=== PATIENT | female | born 2005 | race Caucasian/White ===

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

== ENCOUNTER 2025-03-16 20:32 | Emergency (ER) | payer SELFPAY ==
--- OUTSIDE RECORDS SUMMARY | 2025-03-16 20:38 | XMS_ITS | Encounter Summary ---
Author Organization [facility] Address [address] [place] [address] Care Team Providers Care Curtains And Draperies Salesperson Name Role Phone Telly Doherty MD Primary Care Provider Unavailabl e Encounter Details Date Type Department Care Team (Latest Contact Info) Description 11/14/2006 Outpatient Historical [facility] [place] [address] [place] [address] Telly Doherty MD NO ADDRESS ON FILE Infectious Colitis, Enteritis, and Gastroenteritis (Primary Dx) Social History Tobacco Use Types Packs/Day Years Used Date Smoking Tobacco: Never Assessed Comments Unknown Sex and Gender Information Value Date Recorded Sex Assigned at Not on file 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
--- OUTSIDE RECORDS SUMMARY | 2025-03-16 20:38 | XMS_ITS | Encounter Summary ---
Author Organization [employer] [facility] Address [address] [place] [address] Care Team Providers Care Urologist Md Name Role Phone Telly Doherty MD Primary Care Provider Unavailorly e Encounter Details Date Type Department Care Team (Late st Contact Info) Description 11/07/2006 Outpatient Historical [facility] Toña Rabago MD [address] [place] [id number] Intestinal Infection due to Other Organism, NEC (Primary Dx) Social History Tobacco Use Types Packs/Day Years Used Date Smoking Tobacco: Never Assessed Comments Unknown Sex and Gender Information Value Date Recorded Sex Assigned at Not on file 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 Gender Identity Not on file Sexual Orientation Not on file documented as of this encounter Plan of Treatment Not on file documented as of this encounter Procedures Procedure Name Priority Date/Time Associated Diagnosis Comments BASIC METABOLIC PANEL Routine 11/07/2006 5:03 AM CDT DIFFERENTIAL, MANUAL Routine 11/07/2006 12:20 AM CDT BETA HYDROXYBUTYRATE Routine 11/07/2006 12:20 AM CDT CBC WITH DIFFERENTIAL Routine 11/07/2006 12:20 AM CDT BASIC METABOLIC PANEL Routine 11/07/2006 12:20 AM CDT URINALYSIS MICROSCOPY ONLY Routine 11/07/2006 12:15 AM CDT URINALYSIS W/REFLEX MICROSCOPIC Routine 11/07/2006 12:15 AM CDT documented in this encounter Results * (ABNORMAL) BASIC METABOLIC PANEL (11/07/2006 5:03 AM CDT) GLUCOSE 82 60 - 100 mg/dL INTERFACE SYSTEM BUN 10 7 - 17 mg/dL INTERFACE SYSTEM CREATININE 0.3 0.2 - 0.7 mg/dL INTERFACE SYSTEM SODIUM 137 136 - 145 mEq/L INTERFACE SYSTEM POTASSIUM 4.6 3.5 - 5.0 mEq/L INTERFACE SYSTEM CHLORIDE 111(H) 95 - 110 mEq/L INTERFACE SYSTEM CO2 19(L) 22 - 32 mmol/l INTERFACE SYSTEM CALCIUM 9.1 8.4 - 10.5 mg/dL INTERFACE SYSTEM ANION GAP 12 9 - 20 mEq/L INTERFACE SYSTEM OSMOLALITY, CALCULATED 282 275 - 295 mOsm/Kg INTERFACE SYSTEM 11/07/2006 5:03 AM CDT Toña Rabago MD CHEMISTRY ORDERABLES Edited Performing Organization Address City/[facility] Co de Phone Number INTERFACE SYSTEM Refer to clinic/hospital department * (ABNORMAL) BETA HYDROXYBUTYRATE (11/07/2006 12:20 AM CDT) BETA HYDROXYBUTYRATE 1.77(H) 0.00 - 0.25 mmol/l INTERFACE SYSTEM 11/07/2006 12:2 0 AM CDT Tricia Early DO CHEMISTRY ORDERABLES Edited Performing Organization Address [facility] Co de Phone Number INTERFACE SYSTEM Refer to clinic/hospital department * (ABNORMAL) DIFFERENTIAL, MANUAL (11/07/2006 12:20 AM CDT) NEUTROPHILS, SEG 12 10 - 35 % INT ERFACE SYSTEM LYMPHOCYTES 79(H) 44 - 74 % INTERFAC E SYSTEM MONOCYTE 6 4 - 10 % INTERFACE SYSTEM EOSINOPHILS 3 0 - 3 % INTERFAC E SYSTEM PLATELET EST. Normal Normal INTERF WAI SYSTEM RBC MORPHOLOGY Abnormal(A) Normal INT ERFACE SYSTEM ANISOCYTOSIS 1+(A) None Seen INTERFA CE SYSTEM POIKILOCYTES 2+(A) None Seen INTERFA CE SYSTEM TRIPP CELLS 1+ None Seen INTERFACE SYSTEM POLYCHROMASIA 1+(A) None Seen INTERF WAI SYSTEM SCHISTOCYTES Occasional None Seen INTERF WAI SYSTEM MICROCYTES 2+(A) None Seen INTERFACE SYSTEM 11/07/2006 12:2 0 AM CDT us Tricia Early DO HEMATOLOGY ORDERABLES COM Edite d Performing Organization Address [facility] Phone Number INTERFACE SYSTEM Refer to clinic/hospital department * (ABNORMAL) CBC WITH DIFFERENTIAL (11/07/2006 12:20 AM CDT) WBC 6.3 6.0 - 17.0 K/ul INTERFACE SYSTEM RBC 4.71 4.00 - 4.80 Mil/ul INTERFACE SYSTEM HEMOGLOBIN 11.0(L) 11.3 - 12.5 g/dL INTERFACE SYSTEM HEMATOCRIT 32.6(L) 34.0 - 41.0 % INTERFACE SYSTEM MCV 69.2(L) 70.0 - 86.0 Fl INTERFACE SYSTEM MCH 23.4 23.0 - 31.0 pg INTERFACE SYSTEM MCHC 33.7(H) 28.0 - 32.0 g/dL INTERFACE SYSTEM RDW 14.1 11.0 - 14.5 % INTERFACE SYSTEM PLATELETS 348 140 - 440 K/ul INTERFACE SYSTEM MPV 8.5(L) 8.9 - 12.8 Fl INTERFACE SYSTEM 11/07/2006 12:2 0 AM CDT us Tricia Early DO HEMATOLOGY ORDERABLES Edited Performing Organization Address [facility] Phone Number INTERFACE SYSTEM Refer to clinic/hospital department * (ABNORMAL) BASIC METABOLIC PANEL (11/07/2006 12:20 AM CDT) GLUCOSE 75 60 - 100 mg/dL INTERFACE SYSTEM BUN 11 7 - 17 mg/dL INTERFACE SYSTEM CREATININE 0.4 0.2 - 0.7 mg/dL INTERFACE SYSTEM SODIUM 137 136 - 145 mEq/L INTERFACE SYSTEM POTASSIUM 4.0 3.5 - 5.0 mEq/L INTERFACE SYSTEM CHLORIDE 106 95 - 110 mEq/L INTERFACE SYSTEM CO2 16(L) 22 - 32 mmol/l INTERFACE SYSTEM CALCIUM 8.8 8.4 - 10.5 mg/dL INTERFACE SYSTEM ANION GAP 19 9 - 20 mEq/L INTERFACE SYSTEM OSMOLALITY, CALCULATED 280 275 - 295 mOsm/Kg INTERFACE SYSTEM 11/07/2006 12:2 0 AM CDT us Tricia E Sharath DO CHEMISTRY ORDERABLES Edited Performing Organization Address [facility] Phone Number INTERFACE SYSTEM Refer to clinic/hospital department * URINALYSIS MICROSCOPY ONLY (11/07/2006 12:15 AM CDT) WBC URINE None Seen 0 - 2 INTERFACE SYSTEM RBC UA None Seen 0 - 2 INTERFACE SYSTEM HYALINE CAST None Seen 0 - 2 INTERFA CE SYSTEM BACTERIA UA None Seen None Seen INTERFAC E SYSTEM 11/07/2006 12:1 5 AM CDT us Tricia E Shaarth DO URINE ORDERABLES Edited Performing Organization Address [facility] Phone Number INTERFACE SYSTEM Refer to clinic/hospital department * (ABNORMAL) URINALYSIS (11/07/2006 12:15 AM CDT) COLOR UA Yellow Straw INTERFACE SYSTEM CLARITY UA Clear Clear INTERFACE SYSTEM LEUKOCYTE ESTERASE UA NEGATIVE NEGATIVE INTERFACE SYSTEM NITRITE UA NEGATIVE NEGATIVE INTERFACE SYSTEM PH UA 6.0 5.0 - 9.0 INTERFACE SYSTEM PROTEIN UA NEGATIVE NEGATIVE INTERFACE SYSTEM GLUCOSE UA NEGATIVE NEGATIVE INTERFACE SYSTEM KETONES UA NEGATIVE NEGATIVE INTERFACE SYSTEM UROBILINOGEN UA 0.2 0.2 INTE RFACE SYSTEM BILIRUBIN UA NEGATIVE NEGATIVE INTERFA CE SYSTEM BLOOD UA NEGATIVE NEGATIVE INTERFACE SYSTEM SPECIFIC GRAVITY UA <=1.005(A) 1.005 - 1.030 INTERFACE SYSTEM CLINITEST negative INTERFACE SYSTEM MICRO EXAM Yes(A) No INTERFACE SYSTEM 11/07/2006 12:1 5 AM CDT us Tricia E Sharath DO URINE ORDERABLES Edited Performing Organization Address [facility] Phone [facility] INTERFACE SYSTEM Refer to clinic/hospital department documented in this encounter Visit Diagnoses Diagnosis Intestinal infection due to other organism, not elsewhere classified- Primary documented in this encounter Care Teams Urologist Md Relationship Specialty Start Date End Date Telly Doherty MD PCP - General 06/09/07 documented as of this encounter
--- OUTSIDE RECORDS SUMMARY | 2025-03-16 20:38 | XMS_ITS | Clinical Summary ---
Author Organization [facility] Address [address] [facility] [place] [address] Care Team Providers Care Music Writer Name Role Phone Telly Doherty MD Primary Care Provider Unavailabl e Immunizations Immunization Administration Dates Next Due (M-M-R II/PRIORIX)(12 MO UP) MEASLES, MUMPS AND RUBELLA VIRUS VACCINE, 0.5 ML IM/SUBCUT 2005 (VARIVAX)(12 MOS UP)VARICELL A VIRUS VACCINE (PF) 0.5 ML, SUB CUT 01/11/2010,12/12/2006 Dt Dtp Dtap Vaccine 12/12/2006, 6,06/05/2005,2004 HIB, Unspecified Formulation 12/12/2006, 2005,06/05/2005,2004 Hepatitis B Vaccine 2005,06/05/2005,2004 IPV/OPV 2005,06/05/2005,04/04/2005 Pneumococcal 7-valent conjug ate vaccine IM 12/12/2006 Social History Tobacco Use Types Packs/Day Years Used Date Smoking Tobacco: Never Assessed Comments Unknown Sex and Gender Information Value Date Recorded Sex Assigned at Not on file 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
--- OUTSIDE RECORDS SUMMARY | 2025-03-16 20:38 | XMS_ITS | Encounter Summary ---
Author Organization [facility] Address [address] [place] [address] Care Team Providers Care Strategic Debriefing Officer Name Role Phone Telly Doherty MD Primary Care Provider Unavailabl e Encounter Details Date Type Department Care Team (Latest Contact Info) Description 12/12/2006 Outpatient Historical [facility] [place] [address] [place] [address] Telly Doherty MD NO ADDRESS ON FILE Routine Child Health Exam (Primary Dx) Social History Tobacco Use Types Packs/Day Years Used Date Smoking Tobacco: Never Assessed Comments Unknown Sex and Gender Information Value Date Recorded Sex Assigned at Not on file 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
--- OUTSIDE RECORDS SUMMARY | 2025-03-16 20:38 | XMS_ITS | Data Portability ---
Author Organization [facility] Address [address] [address] Care Team Providers Care Commission Specialist Name Role Phone ZELDA FRASER Primary Care Provider Assessment No assessment recorded. Plan of Treatment Reminders Order Date Submit Date Provider Last Modified By Organization Details Last Modified Time Details Appointments None recorded. Lab None recorded. 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 Surgeries None recorded. Imaging XR, foot, 3 or more view 2022 023 [facility] ([facility]), [address] [place], [address], 3 09:30:00 Medication Orders prednisone 20 mg tablet 2023 024 [facility], [address], [place], [address], 4 13:30:09 Voltaren Arthritis Pain 1 % topical gel [address] [facility], [address], [place], [address], 4 13:03:33 Patient TargetsNo targets recorded. Patient InstructionsNo instructions recorded. 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 [facility] [address] [place], [address], 05/06/2023 10:20:37 Result Notes None recorded. Medical Equipment None Reported. Allergies No known drug allergies Medications Name Sig Start Date Stop Date Status Note LastModified by Organization Details LastModified Time medroxyprog esterone 10 mg tablet TAKE 1 TABLET BY MOUTH ONCE DAILY NEEDED FOR PCOS FOR 10 DAYS, TAKE EVERY 60 DAYS IF NOT CYCLING active Not Available Not Available No t Available cetirizine 10 mg tablet TAKE 1 TABLET BY MOUTH ONCE DAILY NEEDED FOR ALLERGY SYMPTOMS active Not Available Not Available No t Available famotidine 40 mg tablet TAKE 1 TABLET BY MOUTH TWICE DAILY FOR 5 DAYS active Not Available Not Available No t Available prednisone 20 mg tablet TAKE 3 TABLETS BY MOUTH ONCE DAILY FOR 6 DAYS active Not Available Not Available No t Available sulfamethox azole 800 mg-trimetho prim 160 mg tablet TAKE 1 TABLET BY MOUTH EVERY 12 HOURS FOR 10 DAYS active Not Available Not Available No t Available spironolact one 25 mg tablet TAKE 1 TABLET BY MOUTH ONCE DAILY active Not Available Not Available No t Available fluticasone propionate 50 mcg/actuati on nasal spray,suspe nsion USE 2 SPRAY(S) IN EACH NOSTRIL ONCE DAILY active Not Available Not Available No t Available Voltaren Arthritis Pain 1 % topical gel APPLY 2 GRAMS TO THE AFFECTED AREA(S) BY TOPICAL ROUTE 4 TIMES PER DAY 05/05 completed Not Available Not Available Not Available Vitals Date Recorded Body height Body mass index (BMI) Body mass index (BMI) [Percentile] Per age and sex Body weight Oxygen saturation Oxygen saturation in Arterial blood by Pulse oximetry Heart rate Respiratory rate Body temperature Systolic And Diastolic Provider Name and Address Organization Details Last Updated DateTime 3 175.26 cm 33.6 kg/m2 96.62 % 889687. 87 g 99 % 99 % 74 /min 20 /min 98.7 [degF] 110/88 mm[Hg] Hope Elmore [facility] 3 09:47:42 Date Recorded Body height Body mass index (BMI) Body mass index (BMI) [Percentile] Per age and sex Body weight Oxygen saturation Oxygen saturation in Arterial blood by Pulse oximetry Heart rate Body temperature Systolic And Diastolic Provider Name and Address Organization Details Last Updated DateTime 4 175.26 cm 33.7 kg/m2 96.25 % 412027. 06 g 99 % 99 % 78 /min 99.1 [degF] 124/76 mm[Hg] Jevon Cecelia [facility] 4 13:07:05 Social History None recorded. Functional Status None recorded. Mental Status None recorded. Family History Nothing Reported. Medical History No medical history recorded. Gynecological HistoryNo gynecological history recorded. Obstetrics History GPAL:G 0 P 0 0 0 0 Past Encounters Encounter ID Performer Location Encounter Start Date Encounter Closed Date Diagnosis/Indication Diagnosis SNOMED-CT Code Diagnosis ICD10 Code Diagnosis IMO Codes Diagnosis Note [id number] [facility] ([facility]) [address] [place] [id number] 05/01/2023 09:35:56 05/01/2023 11:29:46 Pain in right foot [id number] 01036 M79.671 Negative x-ray today. Start voltaren gel four times daily as needed. Encouraged to roll frozen water bottle twice daily on foot and get plantar fascitis shoe inserts. Due to length of pain, will refer to podiatry today. Patient agrees to plan of care. [id number] [facility] ([facility]) [address] [place] [phone] 05/05/2024 12:48:58 05/05/2024 17:50:17 Right side sciatica [id number] 25104 M54.31 Discussed to take 400mg ibuprofen twice a day for next 5 days with food.Use prednisone as prescribed .Apply a heating pad for 10 minutes every 2 hours while awake. Perform slow stretches 2 times a day.F/u with PCP in 4-5 days if symptoms persist or worsen. Health Concerns Section Related Observation LastModified by Organization Detai ls LastModified Time None Recorded Concern Status LastModified by Organization Details LastModified Time None Recorded Advance Directives Directive None Recorded Payers Insurance Date Sequence Insurance Name Policy Number Policy Blackman Covered Member ID Blackman Member ID Guarantor Name 08/21/2024 1 [facility] (MEDICAID REPLACEMENT - HMO) AD Sinha [id number] Martha Sinha Notes Date Note Type Note Provider Name and Address Organization Details Recorded Time 05/01/2023 text/html Joint PainReport ed by PatientHPIFor quality, patient reportssharp. For location, patient reportspain is not radiatingandright foot. For severity, patient reportsno change. For duration, patient reportspresent <1 month. For timing, patient reportsdate of onset:andpain at night(2 weeks ago). For context, patient reportstrauma. For alleviating factors, patient reportsrestandcold compress. For aggravating factors, patient reportsmovement/positio nazario. For associated symptoms, patient reportsno fever,no weak limbs,no tingling,no numbness of the legs/feet, andno incontinence. For adls affected, patient reportsclimbing stairs(some trouble ambulating).ROS as noted in the HPI Patient is an 17 year old female who presents to the walk in clinic today for right foot pain. Patient reports she rolled her ankle 2 weeks ago and wore a wrap along with icing and ibuprofen but the foot is not improving. Reports pain when ambulating. GARETH WHITE, ROHINI-C [address] [place] [address], [phone], [facility], [place] 05/01/2023 11:10:37 05/05/2024 text/html ROS as noted in the HPI walk in: Pt states her right hip started hurting yesterday. Feels like a pinched nerve. When she sits down and stands up the pain is worse. No meds taken for thsi. denies any known trauma. PCP: Rosie BLANK, TENNIS PLAYER [address] [place], [address], [facility], [place] 05/06/2024 10:02:49 OBGyn Episode No OBEpisode recorded.
[2025-03-16 20:40] VITALS: BP 128/91; PULSE 87; RESP 15; TEMP 36.8; O2SAT 96; BMI 33.7
[2025-03-16 20:45] VITALS: BP 128/91; PULSE 101; O2SAT 100
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
[2025-03-16] MEDS: orphenadrine 30 mg/mL Inj 2 mL 60 MG IM (21:25)
[2025-03-16 21:49] VITALS: BP 128/91; PULSE 69; O2SAT 99
== END 2025-03-16 21:50 | disposition home or self-care (01) ==
PROVIDERS: Emergency Provider Physician Assistant; PCP Family Medicine
DX: S06.0X0A Concussion without loss of consciousness, initial encounter (principal); W22.10XA Striking against or struck by unspecified automobile airbag, initial encounter; V89.2XXA Person injured in unspecified motor-vehicle accident, traffic, initial encounter
CPT/HCPCS: 96372; 99284; J1885; J2360